=== PATIENT | female | born 1950 | race Caucasian/White ===

== ENCOUNTER → 2019-05-03 | Outpatient (CLI) | payer BC ==
[~2019-05-03] MED LIST: AMBIEN 10 MG TA10 MG PO; BENICAR20 MG PO; BENICAR40 MG PO; CHLORDIAZEPOXI1 EAC1 PO; COLACE100 MG PO; FIORICET 50-321 EACH PO; FLONASE 0.05%50 MCG NASAL; ISOSORBIDE MONO20 MG PO; LEVOTHYROXIN0.137 M1 PO; LEXAPRO 10 MG T10 M1 PO; LORTAB 5 MG/5001 TA1 PO; MACRODANTIN50 MG PO; MECLIZINE 25 MG25 M1 PO; METAMUCIL WAFER1 PKT PO; MILK THISTLE500 MG PO; MONOKET20 MG PO; STRESS B-COMPL1 EACH PO; SYNTHROID150 MCG PO; TRAMADOL 50 MG50 MG PO; TYLENOL325 MG PO; XANAX 0.25 MG0.25 MG PO; XARELTO10 MG PO; ZEGERID 20 MG1 EACH PO
== END ==
LOC: M.ULTRA 09:00
DX: K76.0 Fatty (change of) liver, not elsewhere classified (principal); R94.5 Abnormal results of liver function studies

== ENCOUNTER → 2020-06-26 | Outpatient (CLI) | payer BC ==
[2020-06-26 10:37] LABS: ABSOLUTE BASOPHILS 0.1 thou/uL (0.0-0.2); ABSOLUTE EOSINOPHILS 0.2 thou/uL (0.0-0.7); ABSOLUTE LYMPHOCYTES 2.4 thou/uL (0.8-5.3); ABSOLUTE MONOCYTES 0.5 thou/uL (0.0-1.2); ABSOLUTE NEUTROPHILS 2.3 thou/uL (1.6-8.1); BASOPHILS 1.3 %; EOSINOPHILS 3.3 %; HEMATOCRIT 48.1 % (37.0-47.0); HEMOGLOBIN 16.8 gm/dL (12.0-15.0); LYMPHOCYTES 44.4 %; MCH 29.7 pg (26.0-34.0); MCHC 34.9 g/dL (28.0-37.0); MONOCYTES 9.1 %; NUCLEATED RBCS 0 /100WBC; PLATELET COUNT* 286 thou/uL (150-400); POLYS 41.9 %; RBC 5.66 mil/uL (4.20-5.00); RDW-CV 13.9 % (10.5-14.5); WBC 5.4 thou/uL (4.0-11.0)
[2020-06-26 10:47] LABS: CREATININE 0.9 mg/dL (0.6-1.3); POTASSIUM 4.3 mmol/L (3.5-5.1); TOTAL BILIRUBIN 0.6 mg/dL (<0.1-1.0); TOTAL PROTEIN 8.1 g/dL (6.4-8.2)
[2020-06-28 14:07] LABS: GLIADIN IGA AB 14 units (0-19)
== END ==
LOC: M.LAB 10:00 → M.CT 11:00
PROVIDERS: ATTEND Internal Medicine Gastroenterology
DX: K57.30 Diverticulosis of large intestine without perforation or abscess without bleeding (principal); K76.0 Fatty (change of) liver, not elsewhere classified; K90.0 Celiac disease; K52.9 Noninfective gastroenteritis and colitis, unspecified; J84.10 Pulmonary fibrosis, unspecified; K76.89 Other specified diseases of liver

== ENCOUNTER → 2021-05-29 | Outpatient (CLI) | payer BC | LOC: M.PUL 11:21 | PROVIDERS: ATTEND Internal Medicine Critical Care Medicine | DX: G47.09 Other insomnia (principal); R40.0 Somnolence; R53.83 Other fatigue ==